=== PATIENT | male | born 1950 | race Caucasian/White ===

== ENCOUNTER 2021-08-19 15:05 | Emergency (ER) | payer BC ==
[2021-08-19 15:36] VITALS: BP 166/91; TEMP 101.6; BMI 27.6
[2021-08-19] MEDS ORDERED: ACETAMINOPHEN 500 MG TABLET (FP) PO ONE (17:53)
[2021-08-19] MEDS ORDERED: ACETAMINOPHEN 500 MG TABLET (FP) ONE (18:06)
[2021-08-19] MEDS ORDERED: AZITHROMYCIN 500 MG TABLET PO ONE (19:45)
[2021-08-19] MEDS ORDERED: AZITHROMYCIN 250 MG TABLET ONE (19:55)
[2021-08-19 20:49] VITALS: PULSE 96
== END 2021-08-19 20:49 | disposition home or self-care (01) ==
LOC: JER 15:05 → JERFT 15:05 → JER 20:49
DX: J18.9 Pneumonia, unspecified organism (principal)
CPT/HCPCS: 0241U-QW; 71046-TC-FY; 99284-25